=== PATIENT | male | born 1995 | race Caucasian/White ===

== ENCOUNTER 2025-03-19 21:26 | Emergency (ER) | payer OTHER, SELFPAY ==
[2025-03-19 21:31] VITALS: BP 157/94; PULSE 89; RESP 16; TEMP 36.2; O2SAT 99
--- NOTE | 2025-03-19 22:28 | PC.NURSE ---
we are going to head out. The bleeding stopped.
== END 2025-03-19 23:00 | disposition left against medical advice (07) ==
LOC: ANHED 22:46
DX: S61.201A Unspecified open wound of left index finger without damage to nail, initial encounter (principal)
CPT/HCPCS: 99199